=== PATIENT | male | born 1970 | race Caucasian/White ===

== ENCOUNTER 2021-04-28 08:58 | Emergency (ER) | payer SELFPAY ==
[~2021-04-28] VITALS: Ht 182.9 cm; Wt 81.6 kg
[2021-04-28 09:03] VITALS: BP 145/89
[2021-04-28] MEDS ORDERED: IBUP-1955 PO (09:10)
== END 2021-04-28 09:44 | disposition home or self-care (01) ==
LOC: ER 09:04
DX: S33.5XXA Sprain of ligaments of lumbar spine, initial encounter (principal); S40.811A Abrasion of right upper arm, initial encounter; V20.4XXA Motorcycle driver injured in collision with pedestrian or animal in traffic accident, initial encounter; Y93.55 Activity, bike riding; Y92.89 Other specified places as the place of occurrence of the external cause; Y99.8 Other external cause status